=== PATIENT | female | born 1985 | race Caucasian/White ===

== ENCOUNTER 2017-05-07 20:49 | Emergency (ER) | payer OTHER ==
[~2017-05-07] VITALS: Ht 162.6 cm; Wt 99.8 kg
[2017-05-07] MEDS ORDERED: cloNIDine HCL 0.1 MG TAB ONE (20:58)
[2017-05-07 20:59] VITALS: BP 185/99
[2017-05-07] MEDS ORDERED: cloNIDine HCL 0.1 MG TAB PO ONE (21:15)
[2017-05-07 21:19] LABS: Mean Corpuscular Volume 82.7 fL (80.0-100.0); Monocytes # (auto) 0.5 uL
[2017-05-07 21:20] LABS: Basophils # (auto) 0.1 uL; Basophils % (auto) 1.5 % (0.0-2.0); Eosinophils # (auto) 0.2 uL; Eosinophils % (auto) 2.7 % (0.0-7.0); Hematocrit 40.4 % (36.0-46.0); Hemoglobin 13.5 g/dL (12.2-16.2); Lymphocytes % (auto) 34.4 % (10.0-50.0); Mean Corpuscular Hemoglobin 27.7 pg (28.0-32.0); Mean Corpuscular Hgb Conc. 33.5 g/dL (32.0-36.0); Monocytes % (auto) 5.7 % (0.0-12.0); Neutrophils # (auto) 4.9 uL; Neutrophils % (auto) 55.7 % (37.0-80.0); Nucleated Red Blood Cells % 0.3 %; Platelet Count (auto) 453 10^3/uL (140-450); Red Blood Cells 4.88 10^6/uL (4.0-5.20); Red Cell Distribution Width 16.2 % (11.8-14.3); White Blood Cell 8.9 10^3/uL (4.4-10.8)
[2017-05-07 21:38] LABS: Albumin 3.8 g/dL (3.4-5.0); BUN/Creatinine Ratio 15.5; Calcium 9.2 mg/dL (8.5-10.1); Potassium 3.9 mmol/L (3.5-5.1)
[2017-05-07 21:40] LABS: Bilirubin, Total 0.2 mg/dL (0.2-1.0); Total Protein 8.1 g/dL (6.4-8.2)
== END 2017-05-07 22:58 | disposition left against medical advice (07) ==
LOC: ER 20:49
DX: R51 Headache (principal); Z53.21 Procedure and treatment not carried out due to patient leaving prior to being seen by health care provider
CPT/HCPCS: 36415; 70450; 80053; 84702; 85025